=== PATIENT | female | born 1935 | race Caucasian/White ===

== ENCOUNTER 2018-07-02 14:36 | Emergency (ER) | payer MEDICARE, OTHER ==
[~2018-07-02] VITALS: Ht 162.6 cm; Wt 116.1 kg
--- NOTE | 2018-07-02 14:36 | NUR ---
PT BIB [facility] FROM [facility],LOW O2 SAT (80's), PT IS AAOX1 ARMANIAN SPEAKING BUT RESPOND TO NAME, NOTED RESPIRATORY DISTRESS, HOOKED TO NON REBREATHER MASK AT 15LPM, HOOKED TO MONITOR, KEPT RESTED AND COMFORTABLE. WILL CONTINUE TO MONITOR.
--- NOTE | 2018-07-02 14:49 | NUR ---
LABS DRAWNED AND SENT TO LAB.
[2018-07-02] MEDS ORDERED: ACID1TAB14 PO (14:58)
[2018-07-02] MEDS ORDERED: BLOO-668 IN (14:58)
[2018-07-02] MEDS ORDERED: INSU100I34 SQ (14:58)
[2018-07-02] MEDS ORDERED: AMIN30LI27 PO (14:58)
[2018-07-02] MEDS ORDERED: BISA10SU8 RC (14:58)
[2018-07-02] MEDS ORDERED: HEPA50008 SQ (14:58)
[2018-07-02] MEDS ORDERED: METO25TA3 PO (14:58)
[2018-07-02] MEDS ORDERED: MAGN400O6 PO (14:58)
[2018-07-02] MEDS ORDERED: PANT40TA2 PO (14:58)
--- NOTE | 2018-07-02 15:00 | NUR ---
SEEN AND EXAMINED BY DR. SOOD.
--- NOTE | 2018-07-02 15:27 | NUR ---
Radha cabrera in [facility] - 07/02/18 at 1527 by BEAU TECH AT BEDSIDE FOR US.
--- NOTE | 2018-07-02 15:27 | NUR ---
TECH AT BEDSIDE FOR ECHOCARDIOGRAM.
[2018-07-02 15:28] LABS: BASOPHILS % (AUTO) 0.3 % (0.0-2.0); EOSINOPHILS % (AUTO) 0.3 % (0.0-6.0); HEMATOCRIT 36 % (33-45); HEMOGLOBIN 11.6 g/dL (11.5-14.8); LYMPHOCYTES # (AUTO) 1.5 /CMM (0.8-4.8); LYMPHOCYTES % (AUTO) 10.7 % (20.0-44.0); MEAN CORPUSCULAR HGB CONC 32 g/dl (31.0-36.0); MEAN CORPUSCULAR VOLUME 89 fL (82-100); MONOCYTES # (AUTO) 0.9 /CMM (0.1-1.30); MONOCYTES % (AUTO) 6.6 % (2.0-12.0); NEUTROPHILS # (AUTO) 11.2 /CMM (1.8-8.9); NEUTROPHILS % (AUTO) 82.1 % (43.0-81.0); PLATELET COUNT (AUTO) 353 /CMM (150-450); RED BLOOD CELL COUNT(AUTO) 4.05 MIL/uL (4.0-5.2); WHITE BLOOD COUNT (AUTO) 13.7 K/uL (4.3-11.0)
[2018-07-02 15:29] LABS: ABG BASE EXCESS 2.1 mmol/L; ABG OXYGEN SATURATION 86.8 % (92.0-98.5); ABG PCO2 36.2 mmHg (35.0-45.0); ABG PH 7.468 (7.350-7.450); ABG PO2 53.4 mmHg (75.0-100.0); AaDO2 623.4 mmHg; COHb 0.7 % (0.5-1.5); MetHb 0.3 % (0.0-1.5); O2Hb 85.9 % (94.0-97.0); SITE, ABG Right Radial; VENT MODE, BG NON REBREATHER
[2018-07-02 15:44] LABS: CALCIUM, SERUM 9.1 mg/dL (8.5-10.1); CARBON DIOXIDE 24 mmol/L (21-32); CHLORIDE 99 mmol/L (98-107); CREATININE 1.2 mg/dL (0.6-1.3); GLUCOSE 141 mg/dL (74-106); POTASSIUM 3.3 mmol/L (3.5-5.1); SODIUM SERUM 135 mmol/L (136-145); UREA NITROGEN, BLOOD 24 mg/dL (7-18)
--- NOTE | 2018-07-02 15:48 | NUR ---
RADIOLOGY AT BEDSIDE FOR EVAL.
[2018-07-02 15:54] VITALS: BP 125/62
[2018-07-02 15:57] LABS: B-TYPE NATRIURETIC PEPTIDE 4145 PG/ML (0-125)
[2018-07-02] MEDS ORDERED: HEPARIN SODIUM, PORCINE 5000 UNITS/1 ML VIAL IV ONE (16:00)
[2018-07-02] MEDS ORDERED: HEPARIN INFUSION/D5W 500 ML IV PRN (16:00)
--- NOTE | 2018-07-02 16:02 | NUR ---
pt. is awake placed into bipap due to increased wob and pao2 53 mmhg on non rebreather. bipap settings below per dr. medina: ipap 18 epap 8 rate 12 fio2 60% breath sounds diminished bilateral. spo2 post bipap is 99% - 100% Addendum: 07/02/18 at 1605 by SELVIN WADE RT Amended: Links added.
[2018-07-02] MEDS ORDERED: HEPARIN INFUSION/D5W 500 ML IV ONE (16:08)
[2018-07-02] MEDS ORDERED: HEPARIN SODIUM, PORCINE 5000 UNITS/1 ML VIAL ONE (16:08)
--- NOTE | 2018-07-02 16:08 | NUR ---
CALLED [facility] FOR ICU BED
[2018-07-02] MEDS ORDERED: CT SWABBABLE VALVE TRANS SET 1 EA INFUS.SET MC ONE ×2 (16:41)
[2018-07-02] MEDS ORDERED: IOHEXOL-350 100 ML VIAL IV ONE ×2 (16:41)
[2018-07-02] MEDS ORDERED: IV NS 0.9% 0 ML IV ONE (16:41)
[2018-07-02] MEDS ORDERED: IV NS 0.9% 250 ML IV ONE (16:41)
[2018-07-02 16:51] VITALS: BP 127/91
--- NOTE | 2018-07-02 17:00 | NUR ---
WHEELED TO CT SCAN VIA ACLS PROTOCOL.
--- NOTE | 2018-07-02 17:16 | NUR ---
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
--- NOTE | 2018-07-02 17:22 | NUR ---
CALLED [facility] FOR STAT READ ON CTA
--- NOTE | 2018-07-02 17:25 | NUR ---
REPORT GIVEN TO DANIEL GOOD FOR [facility]. WITH ONGOING HEPARIN DRIP 2100UNITS/HR.
--- NOTE | 2018-07-02 17:52 | NUR ---
CALLED [facility] FOR POSSIBLE TRANSFER - WAS INFORMED TO SEND A FACESHEET TO - WAS ALSO INFORMED THAT THERE ARE NO ICU BEDS AT THIS TIME BUT SOMETHING MIGHT OPEN UP
--- NOTE | 2018-07-02 17:53 | NUR ---
CALLED [facility] - WAS INFORMED THAT THEY ARE CLOSED FOR DIVERSION AND ARE UNABLE TO MOVE THIER PATIENTS TO IN-PATIENT INTERNALLY
--- NOTE | 2018-07-02 18:16 | NUR ---
RICKIE FROM [facility] CALLED BACK TO SPEAK WITH DR. SOOD
--- NOTE | 2018-07-02 19:24 | NUR ---
REPORT GIVEN TO DANIEL DAMIAN FOR [facility]. AWAITING TRANSPORT TO [facility].
[2018-07-02 21:00] VITALS: BP 127/77
--- NOTE | 2018-07-04 05:09 | NUR ---
CALLED [facility] ICU, SPOKE WITH SANDRINE SANCHEZ, NOTIFIED OF BLOOD CULTURE RESULT.
== END 2018-07-02 21:01 | disposition home or self-care (01) ==
LOC: ER 14:49
DX: I26.99 Other pulmonary embolism without acute cor pulmonale (principal); G89.29 Other chronic pain; I48.91 Unspecified atrial fibrillation; I51.3 Intracardiac thrombosis, not elsewhere classified; E11.9 Type 2 diabetes mellitus without complications; E78.5 Hyperlipidemia, unspecified; R60.0 Localized edema; F03.90 Unspecified dementia, unspecified severity, without behavioral disturbance, psychotic disturbance, mood disturbance, and anxiety; I11.9 Hypertensive heart disease without heart failure; I43 Cardiomyopathy in diseases classified elsewhere; I11.0 Hypertensive heart disease with heart failure; E66.01 Morbid (severe) obesity due to excess calories; Z79.4 Long term (current) use of insulin
CPT/HCPCS: 36415; 36600; 71045-TC; 80048-TC; 83605-TC; 83880; 84484-TC; 85025-TC; 85730-TC; 87040-TC; 87081-TC; 93307-TC; J1644; J7050; Q9967